=== PATIENT | male | born 1990 | race Two or more races ===

== ENCOUNTER 2017-03-12 01:39 | Emergency (ER) | payer OTHER ==
[~2017-03-12] VITALS: Ht 185.4 cm; Wt 59.0 kg
[2017-03-12] MEDS ORDERED: Famotidine 20 MG/ 2ML VIAL IVP ONE (01:45)
[2017-03-12] MEDS ORDERED: Lidocaine 2% Visc 15ml soln ORAL ONE (01:45)
[2017-03-12] MEDS ORDERED: Dicyclomine HCl 10mg/5ml oral soln ORAL ONE (01:45)
[2017-03-12] MEDS ORDERED: Mylanta II UD 30ml ORAL ONE (01:45)
[2017-03-12 02:04] LABS: BASOPHILS % (AUTO) 1.2 % (0.0-2.0); EOSINOPHILS % (AUTO) 0.3 % (0.0-3.0); MEAN CORPUSCULAR HEMOGLOBIN 31.6 PG (27.0-31.0); MEAN CORPUSCULAR HGB CONC 34.1 G/DL (32.0-36.0); MEAN CORPUSCULAR VOLUME 93 FL (80-99); MEAN PLATELET VOLUME 6.2 FL (6.5-10.1); MONOCYTES % (AUTO) 6.7 % (1.0-10.0); NEUTROPHILS % (AUTO) 64.8 % (45.0-75.0); PLATELET COUNT 269 K/UL (150-450); RED BLOOD COUNT 5.61 M/UL (4.70-6.10); RED CELL DISTRIBUTION WIDTH 11.1 % (11.6-14.8); WHITE BLOOD COUNT 10.1 K/UL (4.8-10.8)
[2017-03-12 02:07] LABS: INR 1.1 (0.9-1.1); PROTHROMBIN TIME 11.5 SEC (9.30-11.50)
[2017-03-12 02:16] LABS: ALANINE AMINOTRANSFERASE 38 U/L (3-41); ALBUMIN/GLOBULIN RATIO 1.1 (1.0-2.7); ANION GAP 17 (5-15); ASPARTATE AMINO TRANSFERASE 35 U/L (5-40); CALCIUM 9.7 mg/dL (8.6-10.2); CARBON DIOXIDE 26 mEQ/L (20-30); CHLORIDE 97 mEQ/L (98-107); CREATININE 1.1 mg/dL (0.7-1.2); GLOMERULAR FILTRATION RATE > 60 mL/min (>60); HEMOLYSIS 95; LIPASE 47 U/L (< 60); POTASSIUM 4.4 mEQ/L (3.4-4.9); SODIUM 140 mEQ/L (135-145); TOTAL PROTEIN 8.1 g/dL (6.6-8.7)
[2017-03-12] MEDS ORDERED: TRAMADOL HCL50 MG ORAL (02:58)
[2017-03-12] MEDS ORDERED: ZOFRAN ODT4 MG ORAL (02:58)
[2017-03-12 03:00] LABS: APPEARANCE,URINE CLEAR; KETONES,URINE NEGATIVE (NEGATIVE); LEUKOCYTE ESTERASE ,URINE NEGATIVE (NEGATIVE); NITRITE,URINE NEGATIVE (NEGATIVE); PH,URINE 6 (4.5-8.0); PROTEIN,URINE NEGATIVE (NEGATIVE); UROBILINOGEN,URINE NORMAL MG/DL (0.0-1.0)
[2017-03-12] MEDS ORDERED: traMADol 50mg tab ORAL ONE (03:00)
[2017-03-12 03:07] LABS: BILIRUBIN,DIRECT 0.2 mg/dL (0.1-0.3)
[2017-03-12 03:33] VITALS: BP 108/67
[2017-03-12 03:35] VITALS: BP 108/67
--- NOTE | 2017-03-12 14:48 | Diagnostic Imaging Report ---
Indication: ABD PAIN Technique: Supine view of the abdomen Comparison: none Findings: Bowel gas pattern is unremarkable. No unusual masses or calcifications. Impression: No acute process This agrees with the preliminary interpretation provided by the emergency room physician
--- NOTE | 2017-03-13 09:52 | Emergency Room Report ---
History of Present Illness General Chief Complaint: Abdominal Pain Source: Patient, Family Member Present Illness HPI Patient with abdominal pain. Epigastric and severe. Vomiting with nausea. No blood. Burning pain 9/10 constant. Some radiation to back. No melena. Constipation with last moving bowels 3 days ago. No fevers. Recent weight loss. Seen at [facility] and told "stomach ulcer" and scheduled for endoscopy. Started on H pylori meds with omeprazole and 2 antibiotics (amox and biaxin). Took peptobismol earlier today which made things worse. No dysuria. No alcohol. No rashes. 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 Feels stress. Allergies: Coded Allergies: No Known Allergies (Unverified , 03/12/17) Patient History Past Medical History: see triage record Social History: Reports: drug use - see tox, Denies: alcohol use, smoking Social History Narrative delivers food Reviewed Nursing Documentation: PMH: Agreed, PSxH: Agreed Nursing Documentation-PMH Past Medical History: No Stated History Review of Systems All Other Systems: negative except mentioned in HPI Physical Exam Vital Signs Date Time Temp Pulse Resp B/P Pulse Ox O2 Delivery O2 Flow Rate FiO2 03/12/17 01:25 97.7 70 16 155/68 100 Room Air Sp02 EP Interpretation: reviewed, normal General Appearance: GCS 15, mild distress, thin Head: normocephalic Eyes: bilateral eye EOMI, bilateral eye PERRL, bilateral eye anticteric, bilateral eye normal inspection ENT: moist mucus membranes Neck: supple Respiratory: lungs clear, normal breath sounds Cardiovascular #1: regular rate, rhythm Cardiovascular #2: 2+ radial (R) Gastrointestinal: normal inspection, normal bowel sounds, no mass, non- distended, tenderness - epigastric Musculoskeletal: back normal, gait/station normal, normal range of motion Neurologic: alert, oriented x3, grossly normal Psychiatric: anxious Skin: normal inspection, warm/dry Medical Decision Making Diagnostic Impression: Primary Impression: Abdominal pain Qualified Codes: R10.13 - Epigastric pain Additional Impression: Substance abuse ER Course Patient presents with epigastric pain. Ddx: gastritis, PUD, pancreatitis, GERD amongst others. On meds for H pylori. Labs and abd films indicated. Will treat with cocktail, IV hydration and analgesia. Labs unremarkable. Xray with paucity gas. Improved with treatment. Discussed treatment plan. Patient stable for outpatient observation and treatment. Urine tox returns after discharge. + amphetamines. Laboratory Tests Test 03/12/17 01:40 03/12/17 02:50 White Blood Count 10.1 K/UL (4.8-10.8) Red Blood Count 5.61 M/UL (4.70-6.10) Hemoglobin 17.7 G/DL (14.2-18.0) Hematocrit 51.9 % (42.0-52.0) Mean Corpuscular Volume 93 FL (80-99) Mean Corpuscular Hemoglobin 31.6 PG (27.0-31.0) H Mean Corpuscular Hemoglobin Concent 34.1 G/DL (32.0-36.0) Red Cell Distribution Width 11.1 % (11.6-14.8) L Platelet Count 269 K/UL (150-450) Mean Platelet Volume 6.2 FL (6.5-10.1) L Neutrophils (%) (Auto) 64.8 % (45.0-75.0) Lymphocytes (%) (Auto) 27.0 % (20.0-45.0) Monocytes (%) (Auto) 6.7 % (1.0-10.0) Eosinophils (%) (Auto) 0.3 % (0.0-3.0) Basophils (%) (Auto) 1.2 % (0.0-2.0) Prothrombin Time 11.5 SEC (9.30-11.50) Prothrombin Time INR 1.1 (0.9-1.1) PTT 29 SEC (23-33) Sodium Level 140 mEQ/L (135-145) Potassium Level 4.4 mEQ/L (3.4-4.9) Chloride Level 97 mEQ/L (98-107) L Carbon Dioxide Level 26 mEQ/L (20-30) Anion Gap 17 (5-15) H Blood Urea Nitrogen 13 mg/dL (7-23) Creatinine 1.1 mg/dL (0.7-1.2) Estimate Glomerular Filtration Rate > 60 mL/min (>60) Glucose Level 112 mg/dL (74-106) H Calcium Level 9.7 mg/dL (8.6-10.2) Total Bilirubin 1.1 mg/dL (0.0-1.2) Direct Bilirubin 0.2 mg/dL (0.1-0.3) Aspartate Amino Transferase (AST) 35 U/L (5-40) Alanine Aminotransferase (ALT) 38 U/L (3-41) Alkaline Phosphatase 55 U/L (40-129) Total Creatine Kinase 108 U/L (38-174) Total Protein 8.1 g/dL (6.6-8.7) Albumin 4.3 g/dL (3.5-5.2) Globulin 3.8 g/dL Albumin/Globulin Ratio 1.1 (1.0-2.7) Lipase 47 U/L (< 60) Urine Color Pale yellow Urine Appearance Clear Urine pH 6 (4.5-8.0) Urine Specific [place] 1.020 (1.005-1.035) Urine Protein Negative (NEGATIVE) Urine Glucose (UA) Negative (NEGATIVE) Urine Ketones Negative (NEGATIVE) Urine Occult Blood Negative (NEGATIVE) Urine Nitrite Negative (NEGATIVE) Urine Bilirubin Negative (NEGATIVE) Urine Urobilinogen Normal MG/DL (0.0-1.0) Urine Leukocyte Esterase Negative (NEGATIVE) Urine Opiates Screen Negative (NEGATIVE) Urine Barbiturates Screen Negative (NEGATIVE) Phencyclidine (PCP) Screen Negative (NEGATIVE) Urine Amphetamines Screen Positive (NEGATIVE) H Urine Benzodiazepines Screen Negative (NEGATIVE) Urine Cocaine Screen Negative (NEGATIVE) Urine Marijuana (THC) Screen Negative (NEGATIVE) Other X-Ray Diagnostic Results Other X-Ray Diagnostic Results : X-Ray Ordered: abd EP Interpretation: Yes Findings: other - no obstruction, masses, abnormal calcifications Number of Views: 1 Last Vital Signs Date Time Temp Pulse Resp B/P Pulse Ox O2 Delivery O2 Flow Rate FiO2 03/12/17 03:35 97.7 60 16 108/67 100 Room Air Disposition: HOME, SELF-CARE Condition: Improved Scripts Ondansetron Odt* (ZOFRAN ODT*) 4 Mg Tab.rapdis 4 MG ORAL Q8H Y for Nausea & Vomiting, #6 TAB 0 Refills Prov: Alirio Forrester M.D. 03/12/17 Tramadol Hcl* (ULTRAM*) 50 Mg Tablet 50 MG ORAL Q6H Y for For Pain, #10 TAB 0 Refills Prov: Alirio Forrester M.D. 03/12/17 Referrals: [facility] (PCP) Departure Forms: Return to Work Return to Work in (Days): 1 Return to Work Date: Mar 13, 2017 Work Restrictions: None Patient Instructions: Gastritis, Adult Additional Instructions: No aspirin, advil, aleve, alkaselzer, peptobismol or alcohol. Tylenol and [place]. Continue the treatment for the H pylori. Alirio Forrester M.D. Mar 13, 2017 09:52
== END 2017-03-12 03:35 | disposition home or self-care (01) ==
LOC: EDBD 01:39 → EMR 03:00
DX: R10.13 Epigastric pain (principal); F15.10 Other stimulant abuse, uncomplicated
CPT/HCPCS: 36415; 74000; 80053; 80300; 81003; 82248; 82550; 83690; 85025; 85610; 85730; 96360; 96374; 96375; 99284; J2405; S0028